=== PATIENT | male | born 1985 | race Caucasian/White ===

== ENCOUNTER 2017-04-11 00:16 | Emergency (ER) | payer SELFPAY ==
[2017-04-11 00:22] VITALS: BP 144/88
== END 2017-04-11 02:38 | disposition left against medical advice (07) ==
LOC: ED 00:16
DX: Z53.21 Procedure and treatment not carried out due to patient leaving prior to being seen by health care provider (principal)

== ENCOUNTER 2019-04-01 21:23 | Emergency (ER) | payer SELFPAY ==
[~2019-04-01] VITALS: Ht 170.2 cm; Wt 83.5 kg
[2019-04-01 21:29] VITALS: BP 143/92; Ht 170.2 cm; Wt 83.5 kg
== END 2019-04-02 02:55 | disposition left against medical advice (07) ==
LOC: ED 21:23
DX: Z53.21 Procedure and treatment not carried out due to patient leaving prior to being seen by health care provider (principal)